=== PATIENT | female | born 1990 | race African-American/Black ===

== ENCOUNTER 2017-05-07 09:51 | Emergency (ER) | payer MEDICAID ==
[~2017-05-07] VITALS: Ht 167.6 cm; Wt 110.0 kg
[~2017-05-07 09:51] MED LIST: MACR100C PO
[2017-05-07 09:53] VITALS: BP 147/95; PULSE 88; RESP 18; TEMP 98.4; O2SAT 99
== END 2017-05-07 12:46 | disposition left against medical advice (07) ==
LOC: NED 09:51
DX: R11.10 Vomiting, unspecified (principal); Z53.21 Procedure and treatment not carried out due to patient leaving prior to being seen by health care provider
CPT/HCPCS: 99281